=== PATIENT | female | born 1955 | race Caucasian/White ===

== ENCOUNTER → 2016-08-02 | Outpatient (CLI) | payer OTHER | END | disposition home or self-care (01) | LOC: KCIC MAMMO 09:20 | PROVIDERS: ATTEND Internal Medicine Hematology & Oncology | DX: Z12.31 Encounter for screening mammogram for malignant neoplasm of breast (principal) | CPT/HCPCS: G0202; 77067 ==

== ENCOUNTER 2017-11-04 15:42 | Emergency (ER) | payer OTHER ==
[~2017-11-04] VITALS: Ht 149.9 cm; Wt 68.0 kg
[2017-11-04 15:55] VITALS: BP 145/63
--- NOTE | 2017-11-04 16:24 | PHYS DOC ---
Past Medical History Past Medical History: Cancer Past Surgical History: Colectomy, Alcohol Use: None Drug Use: None Adult General Chief Complaint Chief Complaint: WRIST PAIN [facility] HPI Patient is a 62 year old female presents the ED complaining of left wrist injury 2 hours ago. Patient states she was walking and actually tripped down 2 stairs. States she landed on her left wrist. Discussed the pain as sharp. Rates the pain as 8 out of 10. Pain with range of motion. Denies head/neck injury, LOC , use of blood thinners, symptoms prior to fall, laceration, weakness, dizziness , chest pain or shortness of breath. Review of Systems Review of Systems Constitutional: Denies fever or chills [] Eyes: Denies change in visual acuity, redness, or eye pain [] HENT: Denies nasal congestion or sore throat [] Respiratory: Denies cough or shortness of breath [] Cardiovascular: No additional information not addressed in HPI [] GI: Denies abdominal pain, nausea, vomiting, bloody stools or diarrhea [] : Denies dysuria or hematuria [] Musculoskeletal: Complains of left wrist injury. Denies back pain. Integument: Denies rash or skin lesions [] Neurologic: Denies headache, focal weakness or sensory changes [] All other systems were reviewed and found to be within normal limits, except as documented in this note. Current Medications Current Medications Current Medications Medications (Trade) Dose Ordered Sig/[facility] Start Time Stop Time Status Last Admin Dose Admin Ibuprofen (Motrin) 800 mg 1X ONCE 11/04/17 16:30 11/04/17 16:31 DC 11/04/17 16:30 800 MG Allergies Allergies Allergies Coded Allergies Type Severity Reaction Last Updated Verified No Known Drug Allergies 11/04/17 No Physical Exam Physical Exam Constitutional: Well developed, well nourished, no acute distress, non-toxic appearance. [] HENT: Normocephalic, atraumatic Neck: Normal range of motion, no tenderness, supple, no stridor. [] Cardiovascular:Heart rate regular rhythm, no murmur [] Lungs & Thorax: Bilateral breath sounds clear to auscultation [] Abdomen: Bowel sounds normal, soft, no tenderness, no masses, no pulsatile masses. [] Skin: Warm, dry, no erythema, no rash. [] Back: No tenderness, no CVA tenderness. [] Extremities: mild left lateral wrist tenderness, no cyanosis, no clubbing, ROM intact, no edema. [] Neurologic: Alert and oriented X 3, normal motor function, normal sensory function, no focal deficits noted. [] Psychologic: Affect normal, judgement normal, mood normal. [] Current Patient Data Vital Signs Vital Signs Date Time Temp Pulse Resp B/P (MAP) Pulse Ox O2 Delivery O2 Flow Rate FiO2 11/04/17 15:55 98.6 72 18 145/63 (90) 98 Room Air 98.6 EKG EKG [] Radiology/Procedures Radiology/Procedures PROCEDURE: WRIST 3V LEFT Three-view left wrist study Clinical indications: Fell down stairs. Injury. Pain. FINDINGS: There is a nondisplaced impacted comminuted fracture of the distal left radial metaphysis and epiphysis. Radial carpal articulation is maintained. There is a nondisplaced fracture of the ulnar styloid process. No osteolytic process is seen. IMPRESSION: Posttraumatic fractures of the distal left radius and ulna.[] Course & Med Decision Making Course & Med Decision Making Pertinent Labs and Imaging studies reviewed. (See chart for details) []Discussed imaging findings with patient. Splint placed. Neurovascular intact post patient. Pain improved. Discussed follow-up with orthopedics this coming week. Provided contact information/education. Discussed reasons to return to the ED. Patient understands and agrees with plan. Staff Physician Addendum: I was working in the ER during the course of this patient's visit. I was available for consultation as needed, but I was not directly involved in the care of this patient. Eric Biggs DO Staff Physician Kvng Disclaimer Dragon Disclaimer This electronic medical record was generated, in whole or in part, using a voice recognition dictation system. Departure Departure Impression: Primary Impression: Wrist fracture Disposition: 01 HOME, SELF-CARE Condition: IMPROVED Referrals: JEREMIE BUCIO MD (PCP) ALEKSANDR PITT II, MD Patient Instructions: Wrist Fracture Scripts Hydrocodone/Apap 5-325 (NORCO 5-325 TABLET) 1 Each Tablet 1 TAB PO BID for 3 Days, #6 TAB Prov: ZBIGNIEW JAIMES 11/04/17 ZBIGNIEW JAIMES Nov 04, 2017 16:24 ERIC BIGGS DO Nov 05, 2017 06:42
[2017-11-04] MEDS ORDERED: IBUPROFEN 800 MG TABLET. PO ONE (16:30)
--- NOTE | 2017-11-04 16:49 | RAD ---
Three-view left wrist study Clinical indications: Fell down stairs. Injury. Pain. FINDINGS: There is a nondisplaced impacted comminuted fracture of the distal left radial metaphysis and epiphysis. Radial carpal articulation is maintained. There is a nondisplaced fracture of the ulnar styloid process. No osteolytic process is seen. IMPRESSION: Posttraumatic fractures of the distal left radius and ulna. Electronically signed by: Joby Garcia MD (11/04/2017 4:45 PM) [facility] [place]
[2017-11-04] MEDS ORDERED: HYDR-971 PO (16:55)
[2017-11-07] MEDS ORDERED: IBUP-1027 PO (06:42)
== END 2017-11-04 17:15 | disposition home or self-care (01) ==
LOC: ER 15:42
DX: S62.102A Fracture of unspecified carpal bone, left wrist, initial encounter for closed fracture (principal); W01.0XXA Fall on same level from slipping, tripping and stumbling without subsequent striking against object, initial encounter; Y93.89 Activity, other specified; Y92.89 Other specified places as the place of occurrence of the external cause; Y99.8 Other external cause status
CPT/HCPCS: 29125; 73110; 99284-25

== ENCOUNTER → 2017-11-07 | Day surgery (SDC) | payer OTHER ==
[~2017-11-07] VITALS: Ht 149.9 cm; Wt 68.0 kg
[~2017-11-07] MED LIST: BUPIVACAINE 0.5% 50 ML VIAL. ONE; HYDR-971 PO; HYDROcodone/APAP 7.5/325MG 1 TAB TABLET PO ONE; HYDROmorphone 2 MG/ML VIAL IV PRN; IBUP-1027 PO; IV RINGERS,LACTATED 1000ML 1,000 ML IV SCH; KETOROLAC 30 MG/ML INJ FOR OR. INJ ONE; LIDOCAINE 1% PF 2 ML VIAL. ID PRN; LIDOCAINE 2% PF Vial for OR 5 ML VIAL. ONE; MIDAZOLAM HCL/PF 2 MG/2 ML VIAL. ONE; MORPHINE SULFATE 2 MG/ML VIAL. IV PRN; ONDANSETRON PF 4 MG/2 ML VIAL. IV PRN; ONDANSETRON PF 4 MG/2 ML VIAL. ONE; PROCHLORPERAZINE 10 MG/2 ML VIAL. IV PRN; PROPOFOL 20 ML IV ONE; ROPIVacaine 0.5% PF 30 ML VIAL. ONE; fentaNYL PF VIAL 100 MCG/2 ML VIAL IV PRN; fentaNYL PF VIAL 100 MCG/2 ML VIAL ONE
--- NOTE | 2017-11-07 06:40 | EKG ---
[facility] [address] [place] [address] Test Date: 2017-11-07 Test Time: 05:45:45 Pat Name: KELY GOINS Department: Room: Gender: F Drive In Teller: TV : 1955 Requested By: INA MONTEJO Order Number: [id number] Reading MD: Reece Piedra MD Measurements Intervals [place] Rate: 61 P: 0 DE: 104 QRS: 31 QRSD: 88 T: 10 QT: 394 QTc: 398 Interpretive Statements SINUS RHYTHM Electronically Signed On 11-07-2017 12:06:55 CDT by Reece Piedra MD
[2017-11-07] MEDS: fentaNYL PF VIAL 100 MCG/2 ML VIAL IV PRN ×2 (08:45→09:05)
--- NOTE | 2017-11-07 09:45 | OP ---
DATE OF SURGERY: 11/07/2017 PREOPERATIVE DIAGNOSIS: Intraarticular left distal radius fracture. POSTOPERATIVE DIAGNOSIS: Intraarticular left distal radius fracture. PROCEDURE: Operative reduction and internal fixation of left intra-articular 2-part distal radius fracture. SURGEON: Mark Moctezuma M.D. ANESTHESIA: General. ESTIMATED BLOOD LOSS: Minimal. TOURNIQUET TIME: Approximately 45 minutes. COMPLICATIONS: None. OPERATIVE INDICATIONS: The patient is a 62-year-old female who fell on an outstretched left wrist. 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 I have gone over with her the fracture that it is pushed backward, impacted, angulated and does have an intraarticular extension. We had talked about closed reduction generally being less successful as the muscle pull tends to undo this and there is a concern for intra-articular displacement as well. I talked to her about internal fixation with locking plate and screws. She wishes to proceed with surgery and having given consent and verbal understanding of the risks, benefits, postoperative course including possibility of infection, nerve or blood vessel damage, stiffness, medical or other anesthetic complications among others. All her questions were answered and she wishes to proceed. OPERATIVE TECHNIQUE: The patient was identified, procedure verified, patient placed in the supine position on the operating table. After adequate amounts of general anesthesia were administered, the left arm was prepped and draped in standard sterile fashion with an arm tourniquet. After timeout was performed, the patient and procedure identified and verified, left upper extremity was exsanguinated by Esmarch bandage. A volar Edin approach was carried out to the distal radius. The flexor carpi radialis was taken radially. Subperiosteal dissection carried out on the distal radius and neurovascular structures were gently retracted and protected. Open reduction was carried out and a Mike distal radial narrow locking plate was placed under fluoroscopic guidance. A shaft screw held the plate in place where desired and locking screws were placed distally under fluoroscopic guidance to ensure no joint penetration and proper placement. Excellent reduction was noted under multiple fluoroscopic views and additional shaft screw was used to complete fixation to the shaft and all hardware again was checked under fluoroscopic guidance. Thorough irrigation carried out with normal saline solution. Closure accomplished with buried Vicryl sutures, subcuticular Monocryl, Steri-Strips and Mastisol followed by a small volar splint. The patient was returned to recovery room in stable condition having tolerated the procedure well. Fingers were noted to be warm and pink following deflation of the tourniquet. MARK MOCTEZUMA MD DR: NATHAN/diane JOB#: [id number] / [id number]
[2017-11-07 09:50] VITALS: BP 163/59
== END | disposition home or self-care (01) ==
LOC: SURG 05:56
PROVIDERS: ATTEND Orthopaedic Surgery
DX: S52.572A Other intraarticular fracture of lower end of left radius, initial encounter for closed fracture (principal); W19.XXXA Unspecified fall, initial encounter; Y93.89 Activity, other specified; Y92.89 Other specified places as the place of occurrence of the external cause; Y99.8 Other external cause status; Z85.038 Personal history of other malignant neoplasm of large intestine; Z90.49 Acquired absence of other specified parts of digestive tract; Z98.890 Other specified postprocedural states; Z87.39 Personal history of other diseases of the musculoskeletal system and connective tissue; Z87.891 Personal history of nicotine dependence; Z79.899 Other long term (current) drug therapy
CPT/HCPCS: 25608; 76000; 93005; C1713; J0690; J1885; J2001; J2250; J2405; J2704; J2795; J3010; J3490; J7120; A7015

== ENCOUNTER → 2018-01-25 | Outpatient (CLI) | payer OTHER ==
[2017-11-07 09:50] VITALS: BP 163/59
[~2018-01-25] MED LIST changes: -BUPIVACAINE 0.5% 50 ML VIAL. ONE; +DOCU50CA9 PO; -HYDROcodone/APAP 7.5/325MG 1 TAB TABLET PO ONE; -HYDROmorphone 2 MG/ML VIAL IV PRN; -IV RINGERS,LACTATED 1000ML 1,000 ML IV SCH; -KETOROLAC 30 MG/ML INJ FOR OR. INJ ONE; -LIDOCAINE 1% PF 2 ML VIAL. ID PRN; -LIDOCAINE 2% PF Vial for OR 5 ML VIAL. ONE; -MIDAZOLAM HCL/PF 2 MG/2 ML VIAL. ONE; -MORPHINE SULFATE 2 MG/ML VIAL. IV PRN; +MULT1TAB52 PO; -ONDANSETRON PF 4 MG/2 ML VIAL. IV PRN; -ONDANSETRON PF 4 MG/2 ML VIAL. ONE; -PROCHLORPERAZINE 10 MG/2 ML VIAL. IV PRN; -PROPOFOL 20 ML IV ONE; -ROPIVacaine 0.5% PF 30 ML VIAL. ONE; +[UNRECOGNIZED DRUG - OTHER] TP; -fentaNYL PF VIAL 100 MCG/2 ML VIAL IV PRN; -fentaNYL PF VIAL 100 MCG/2 ML VIAL ONE
[2018-01-25 14:26] LABS: BASO % 1 % (0-3); EOS # 0.2 x10^3/uL (0.0-0.7); EOS % 2 % (0-3); HEMATOCRIT 38.5 % (36.0-47.0); HEMOGLOBIN 12.8 g/dL (12.0-15.5); LYMPH # 2.7 x10^3/uL (1.0-4.8); LYMPH % 40 % (24-48); MEAN CORPUSCULAR HEMOGLOBIN 31 pg (25-35); MEAN CORPUSCULAR HGB CONC 33 g/dL (31-37); MEAN CORPUSCULAR VOLUME 92 fL (79-100); MONO # 0.4 x10^3/uL (0.0-1.1); MONO % 7 % (0-9); NEUT # 3.3 x10^3uL (1.8-7.7); NEUT % 50 % (31-73); PLATELET COUNT 230 x10^3/uL (140-400); RED BLOOD COUNT 4.17 x10^6/uL (3.50-5.40); RED CELL DISTRIBUTION WIDTH 14.2 % (11.5-14.5); WHITE BLOOD COUNT 6.7 x10^3/uL (4.0-11.0)
[2018-01-25 14:47] LABS: ALBUMIN 3.5 g/dL (3.4-5.0); CALCIUM 9.4 mg/dL (8.5-10.1); CREATININE 0.7 mg/dL (0.6-1.0); GFR 85.4; POTASSIUM 3.4 mmol/L (3.5-5.1); TOTAL BILIRUBIN 0.5 mg/dL (0.2-1.0)
== END | disposition home or self-care (01) ==
LOC: SURGPAT 13:32
PROVIDERS: ATTEND Surgery
DX: Z01.818 Encounter for other preprocedural examination (principal); K80.20 Calculus of gallbladder without cholecystitis without obstruction
CPT/HCPCS: 36415; 80048; 82040; 82247; 85025

== ENCOUNTER 2018-01-29 08:27 | Day surgery (SDC) | payer OTHER ==
[~2018-01-29] VITALS: Ht 149.9 cm; Wt 68.0 kg
[~2018-01-29 08:27] MED LIST changes: +BUPIVAC MPF-EPI 0.5%-1:200000 30 ML VIAL. ONE; -DOCU50CA9 PO; +GLUCAGON,HUMAN RECOMBINANT 1 MG/ML VIAL. ONE; +IOHEXOL 300 MG/ML 100ML VIAL. ONE; +SURGICEL HEMOSTAT 4X8 EACH. ONE
[2018-01-29] MEDS ORDERED: LIDOCAINE 1% PF 5 ML VIAL. ONE (08:53)
[2018-01-29] MEDS ORDERED: PROPOFOL 20 ML IV ONE (08:53)
[2018-01-29] MEDS ORDERED: DEXAMETHASONE SOD PHOS 20 MG/5 ML VIAL. ONE (08:53)
[2018-01-29] MEDS ORDERED: ROCURONIUM 50 MG/5 ML VIAL. ONE (08:53)
[2018-01-29] MEDS ORDERED: ONDANSETRON PF 4 MG/2 ML VIAL. ONE (08:53)
[2018-01-29] MEDS ORDERED: fentaNYL PF VIAL 100 MCG/2 ML VIAL ONE ×2 (08:55→10:42)
[2018-01-29] MEDS ORDERED: IV RINGERS,LACTATED 1000ML 1,000 ML IV SCH ×2 (09:15→11:54)
[2018-01-29] MEDS ORDERED: MIDAZOLAM HCL/PF 2 MG/2 ML VIAL. ONE (09:58)
[2018-01-29] MEDS ORDERED: GLYCOPYRROLATE 1 MG/5 ML VIAL. ONE (11:29)
[2018-01-29] MEDS ORDERED: NEOSTIGMINE METHYLSULFATE 5 MG/5 ML SYRINGE. ONE (11:29)
--- NOTE | 2018-01-29 11:35 | RAD ---
Examination: CHOLANGIOGRAM INTRAOPERATIVE History: fl time: 0.2 mins
4 fl images
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 4 images provided. Right upper quadrant cholecystectomy clips are present. Contrast is noted within the common bile duct which has a normal luminal caliber. No definite stricture. No evidence of extravasation of contrast about the cystic duct. Intrahepatic biliary tree is unremarkable on images provided. Impression: No extravasation of contrast about the cystic duct. No biliary stricture identified on images provided. Electronically signed by: Salvador Caal MD (01/29/2018 11:32 AM) [facility]
--- NOTE | 2018-01-29 11:49 | PDOC ---
BRIEF OPERATIVE NOTE Date: Jan 29, 2018 Pre-Op Diagnosis symptomatic cholelithiasis Post-Op Diagnosis same Procedure Performed l/s candi with grams Surgeon Yovany Admissions Supervisor Ronen NIETO Anesthesia Type: General Blood Loss 25cc IV Fluid 1000cc Specimens Obtained GB Findings mildly edematous GB encased in omentum, normal grams Complications none GRAY LADD MD Jan 29, 2018 11:48
--- NOTE | 2018-01-29 11:50 | DISCH ---
DISCHARGE INSTRUCTIONS Condition on Discharge Condition on Discharge: Stable Activity After Discharge Activity Instructions for Disc: Activity as tolerated, Avoid exertion Lifting Instructions after Dis: No heavy lifting Driving Instructions after Dis: Do not drive (3-4 days) Diet after Discharge Diet after Discharge: Regular Wound Incision Care Wound/Incision Care: Ice to area for comfort Other wound/incision instructi: july shower Monday Follow-Up Follow up with: Yovany with MARCELINA output GRAY LADD MD Jan 29, 2018 11:50
[2018-01-29] MEDS ORDERED: HYDROmorphone 2 MG/ML VIAL IV PRN (12:00)
[2018-01-29] MEDS ORDERED: ONDANSETRON PF 4 MG/2 ML VIAL. IV PRN (12:00)
[2018-01-29] MEDS ORDERED: LIDOCAINE 1% PF 2 ML VIAL. ID PRN (12:00)
[2018-01-29] MEDS ORDERED: fentaNYL PF VIAL 100 MCG/2 ML VIAL IV PRN (12:00)
[2018-01-29] MEDS ORDERED: MORPHINE SULFATE 2 MG/ML VIAL. IV PRN (12:00)
[2018-01-29] MEDS ORDERED: PROCHLORPERAZINE 10 MG/2 ML VIAL. IV PRN (12:00)
[2018-01-29] MEDS: fentaNYL PF VIAL 100 MCG/2 ML VIAL IV PRN ×2 (12:26→13:04)
[2018-01-29] MEDS ORDERED: HYDROcodone/APAP 5/325MG 1 TAB TABLET PO ONE (12:30)
--- NOTE | 2018-01-29 12:37 | OP ---
DATE OF SURGERY: 01/29/2018 PREOPERATIVE DIAGNOSIS: Symptomatic cholelithiasis. POSTOPERATIVE DIAGNOSIS: Symptomatic cholelithiasis. PROCEDURE: Laparoscopic cholecystectomy with cholangiogram. SURGEON: Onel Ladd MD CLINICAL MEDICAL TRANSCRIPTIONIST: GERSON Dillon. ANESTHESIA: General endotracheal. ESTIMATED BLOOD LOSS: 25. INTRAVENOUS FLUIDS: 1 liter. INDICATIONS: The patient is a 62-year-old with right upper quadrant pain and nausea postprandially. Ultrasound shows stones. She is brought for cholecystectomy. OPERATIVE FINDINGS: The gallbladder was enveloped in omentum. There were omental adhesions in the lower abdomen from previous procedures. Cholangiograms were made and were unremarkable. DESCRIPTION OF PROCEDURE: The patient was brought to the operating suite, given a general endotracheal anesthetic and the abdomen prepped and draped in usual sterile fashion. The midclavicular port site location was chosen due to the presence of a midline scar extending above the umbilicus from the lower abdomen. Abdomen was safely entered with a 5 mm Visiport taking care to avoid injury to abdominal contents. Pneumoperitoneum established, camera inserted and inspection carried out. Under direct vision, the epigastric and lateral port sites were placed as well as a port for the camera just lateral on the right of the umbilicus under direct vision and the area free of omental adhesions. With the table in reverse Trendelenburg rolled to the left, the gallbladder was retracted superolaterally and exposed carefully with blunt and cautery dissection, reflecting omentum off. Some omentum was clipped and divided. This allowed exposure of the cystic duct and cystic artery. The duct was clipped on the gallbladder side. Cholangiograms were made. These were normal. In light of this, the catheter was removed. The cystic duct was clipped x 3 and divided, taking care to avoid injury or compromise of the common duct. The cystic artery was clipped and divided and the gallbladder freed from the bed with cautery dissection. A posterior vessel was encountered senior living up the fossa and controlled with 3 clips. Good hemostasis was present in the fossa as well as no evidence of bile leak. A 19-Latvian round Jn drain was brought through the epigastric port out the lateral port and left in subhepatic space for postoperative drainage. A piece of Surgicel was used to augment hemostasis in the fossa. Table returned to level. Gallbladder delivered through the epigastric incision. Epigastric incision closed with interrupted 0 Vicryl suture. Intra-abdominal pressure decreased to 6 cm of water. No bleeding from the epigastric closure or from the midclavicular or lateral drain site. Abdomen decompressed, camera slowly removed, no bleeding seen. Skin incisions closed with subcuticular 4-0 Monocryl. Steri-Strips and sterile dressings applied. The patient awakened from her anesthetic and taken to the recovery room in satisfactory condition. ONEL ALDD MD DR: WAYNE/diane JOB#: [id number] / [id number]
[2018-01-29] MEDS ORDERED: KETOROLAC 30 MG/ML VIAL. IV ONE (12:45)
[2018-01-29] MEDS ORDERED: HYDR-971 PO (13:16)
[2018-01-29] MEDS ORDERED: DOCU50CA9 PO (13:19)
[2018-01-29 14:10] VITALS: BP 135/66
--- NOTE | 2018-01-31 20:07 | PATHOLOGY ---
[facility] Accession Number: [id number] . 01 Material submitted: . GALLBLADDER . 01 Clinical history: . Symptomatically cholelithiasis . 02 Diagnosis: Gallbladder, laparoscopic cholecystectomy: - Cholelithiasis. - Chronic cholecystitis with focally increased eosinophils. . (JPM/at;01/31/2018) QTA/01/31/2018 . 02 Comment: There is no evidence of malignancy. . 02 Electronically signed: . Remberto Alcantara MD, Pathologist NPI- [id number] . 01 Gross description: . The specimen is received in formalin, labeled "Abigail Fisher, gallbladder". Received is an intact gallbladder measuring 7.4 x 2.8 x 2.7 cm in greatest dimensions displaying blue-nelson serosal surfaces. Opening the gallbladder reveals a velvety, light art and bile-stained mucosa with a gallbladder wall thickness of 0.1 cm. Calculi are present displaying a light brown and granular appearance, and no masses or lesions are noted grossly. Mine Technician sections, to include the proximal margin, are submitted in cassette A1. (CAA; 01/30/2018) QAC/QAC . 02 Pathologist provided ICD-10: K80.10 . 02 CPT . 570434 Specimen Comment: A courtesy copy of this report has been sent to Specimen Comment: [phone]. Specimen Comment: Report sent to Performed at: 01 [facility] [address], [place] [id number] MD Nicola Pantoja MD Phone: [phone] Performed at: 02 [facility] [address] [place], [place] [id number] MD Remberto Alcantara MD Phone: [phone]
== END 2018-01-29 15:17 | disposition home or self-care (01) ==
LOC: SURG 08:27
PROVIDERS: ATTEND Surgery
DX: K80.10 Calculus of gallbladder with chronic cholecystitis without obstruction (principal); Z88.5 Allergy status to narcotic agent; Z79.899 Other long term (current) drug therapy; Z98.51 Tubal ligation status; Z98.890 Other specified postprocedural states; Z85.038 Personal history of other malignant neoplasm of large intestine; Z82.3 Family history of stroke; Z82.49 Family history of ischemic heart disease and other diseases of the circulatory system; Z80.3 Family history of malignant neoplasm of breast; Z87.891 Personal history of nicotine dependence; Z72.89 Other problems related to lifestyle
CPT/HCPCS: 47563; 74300; A7015; J0690; J1100; J1885; J2250; J2405; J2704; J2710; J3010; J3490; J7030; J7120; Q9967; 88304; J1610